=== PATIENT | female | born 1945 | race Hispanic/Latino ===

== ENCOUNTER → 2019-05-16 | Outpatient (CLI) | payer OTHER | END | disposition home or self-care (01) | LOC: OIH 09:13 | PROVIDERS: ATTEND Internal Medicine | DX: Z13.6 Encounter for screening for cardiovascular disorders (principal) | CPT/HCPCS: 75571 ==

== ENCOUNTER → 2019-05-30 | Outpatient (CLI) | payer MEDICARE | END | disposition home or self-care (01) | LOC: RAH 08:02 | PROVIDERS: ATTEND Internal Medicine | DX: N28.1 Cyst of kidney, acquired (principal); K76.89 Other specified diseases of liver; K76.9 Liver disease, unspecified; I25.10 Atherosclerotic heart disease of native coronary artery without angina pectoris | CPT/HCPCS: 76705 ==